=== PATIENT | male | born 1965 | race Caucasian/White ===

== ENCOUNTER 2020-11-21 07:03 | Emergency (ER) | payer BC, OTHER ==
[~2020-11-21] VITALS: Ht 175.2 cm; Wt 84.8 kg
[2020-11-21 07:10] VITALS: BP 154/95
--- NOTE | 2020-11-21 07:34 | Diagnostic Imaging Report ---
INDICATION: Left foot injury AP, oblique and lateral views of the left foot are obtained. There is an oblique lucency to the base of 4th metatarsal indicating nondisplaced intra-articular fracture. There is mild irregularity at the 1st and 2nd tarsometatarsal joints with spurring indicating probable chronic nature. These could be due to post traumatic osteoarthritis. No other fracture is seen. IMPRESSION: Nondisplaced intra-articular fracture base of 4th metatarsal. Dictated by: Dictated on workstation # [id number]
[2020-11-21] MEDS ORDERED: ACHD5005 PO (07:55)
--- NOTE | 2020-11-21 07:56 | ED Lower Extremity ---
General Chief Complaint: Lower Extremity Stated Complaint: L FOOT PAIN Nursing Triage Note: Pt reports being on roof this morning when pt began sliding. Pt was forced to jump from roof landing on feet. Pt c/o L foot pain. Source: patient Exam Limitations: no limitations History of Present Illness Date Seen by Provider: Nov 21, 2020 Time Seen by Provider: 07:13 Initial Comments This 55-year-old gentleman presents to the emergency room with complaints of left foot pain and swelling after sliding off his roof and landing on his feet. He was working on the roof when he began to slide. He could not stop and so therefore controlled his fall the best he could. He did land on his feet. He h as pain in the dorsal midfoot with some swelling or disfigurement of the area. He is not weightbearing. No other injury was reported. The roof edge is about 12 feet off the ground. Allergies and Home Medications Allergies Coded Allergies: No Known Drug Allergies (Unverified Allergy, Mild, 05/24/09) Home Medications Hydrocodone/Acetaminophen 1 Each Tablet, 1 TAB PO Q4H PRN for PAIN-MODERATE (5- 7) Prescribed by: EAMON HSU on 11/21/20 3544 Patient Home Medication List Home Medication List Reviewed: Yes Review of Systems Constitutional: no symptoms reported EENTM: no symptoms reported Respiratory: no symptoms reported Cardiovascular: no symptoms reported Gastrointestinal: no symptoms reported Genitourinary: no symptoms reported Musculoskeletal: see HPI Skin: no symptoms reported Psychiatric/Neurological: No Symptoms Reported Past Kaicbmg-Whvdel-Ircvbo Hx Patient Social History Tobacco Use?: Yes Tobacco type used: Cigarettes Smoking Status: Current Everyday Smoker Smokeless Tobacco Frequency: Current Everyday User Use of E-Cig and/or Vaping dev: No Substance use?: No Alcohol Use?: Yes Alcohol Frequency: Rarely Pt feels they are or have been: No Past Medical History Surgeries: Yes Orthopedic (Cervical spine halo) Respiratory: No Cardiac: No Neurological: No Reproductive Disorders: No Genitourinary: No Gastrointestinal: No Musculoskeletal: Yes Fractures (Numerous) Endocrine: No HEENT: No Cancer: No Psychosocial: No Physical Exam Vital Signs Vital Signs - First Documented 11/21/20 07:10 Temp 35.7 Pulse 80 Resp 15 B/P (MAP) 154/95 (114) Pulse Ox 97 O2 Delivery Room Air Capillary Refill : Less Than 3 Seconds Height, Weight, BMI Height: '" Weight: lbs. oz. kg; 27.00 BMI Method: General Appearance: WD/WN, no apparent distress HEENT: normal ENT inspection Respiratory: no respiratory distress Legs: left leg non-tender, left leg normal inspection, left leg normal range of motion, left leg no evidence of injury Ankles: left ankle non-tender, left ankle normal inspection, left ankle normal range of motion, left ankle no evidence of injury Feet: left foot other (Pain, tenderness, and swelling over the dorsal aspect of the left midfoot. Normal pedal pulse. Normal sensation and capillary refill. 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, no motor/sensory deficits, alert, normal mood/affect, oriented x 3 Skin: normal color, warm/dry Progress/Results/Core Measures Results/Orders My Orders Orders - EAMON HERNANDEZ MD Foot, Left, 3 Views (11/21/20 07:16) Crutches (11/21/20 07:46) Steplite (11/21/20 07:46) Hydrocodone/Apap 5/325 Tablet (Lortab 5 (11/21/20 08:00) Hydrocodone/Apap 5/325 Tablet (Lortab 5 (11/21/20 07:59) Medications Given in ED Current Medications Medications Dose Ordered Sig/Ifeoma Route Start Time Stop Time Status Last Admin Dose Admin Acetaminophen/ Hydrocodone Bitart 1 ea ONCE ONCE PO 11/21/20 08:00 11/21/20 08:01 DC 11/21/20 08:00 1 EA Vital Signs/I&O 11/21/20 07:10 Temp 35.7 Pulse 80 Resp 15 B/P (MAP) 154/95 (114) Pulse Ox 97 O2 Delivery Room Air Blood Pressure Mean: 114 Progress Progress Note : Progress Note Fractures of the second and fourth metatarsals noted. Patient was placed in a boot and provided crutches. Hydrocodone was given for pain. Prompt follow-up with an orthopedist or game master was recommended. Diagnostic Imaging Diagonstic Imaging: Xray Plain Films/CT/US/NM/MRI: other (Left foot) Comments NAME: JERMAINE MARKS MED REC#: [id number] PT STATUS: REG ER : 1965 PHYSICIAN: EAMON HERNANDEZ MD ADMIT DATE: 11/21/20/ER Signed Date of Exam:11/21/20 FOOT, LEFT, 3 VIEWS INDICATION: Left foot injury AP, oblique and lateral views of the left foot are obtained. There is an oblique lucency to the base of 4th metatarsal indicating nondisplaced intra-articular fracture. There is mild irregularity at the 1st and 2nd tarsometatarsal joints with spurring indicating probable chronic nature. These could be due to post traumatic osteoarthritis. No other fracture is seen. IMPRESSION: Nondisplaced intra-articular fracture base of 4th metatarsal. Dictated by: Dictated on workstation # [id number] Dict: 11/21/20729 Trans: 11/21/20736 CV [id number] Interpreted by: ROLAN LIN MD Electronically signed by: ROLAN LIN MD 11/21/2037 Departure Impression Primary Impression: Fracture of fourth metatarsal bone of left foot Qualified Codes: S92.345A - Nondisplaced fracture of fourth metatarsal bone, left foot, initial encounter for closed fracture Additional Impressions: Fracture of second metatarsal bone of left foot Qualified Codes: S92.325A - Nondisplaced fracture of second metatarsal bone, left foot, initial encounter for closed fracture Fall from roof as cause of accidental injury Disposition: 01 HOME, SELF-CARE Condition: Improved Departure-Patient Inst. Decision time for Depature: 07:53 Referrals: HAFSA MCKEON DPM, TERRY D MD SELF, MAXWELL MD (PCP/Family) Primary Care Physician VIRAL BROWNING MD Patient Instructions: Foot Fracture ED, How to Use Crutches Add. Discharge Instructions: Keeping the boot on is much as possible. Do not weight-bear. Use crutches to ambulate. Do not use your left foot for a clutch or any other activity. Elevate and apply ice in 20-minute intervals to improve pain and swelling. Follow-up with an orthopedist as soon as possible. A list of providers can be found below. Call with questions or concerns. Return to the ER if you have worsening symptoms. All discharge instructions reviewed with patient and/or family. Voiced unders tanding. Scripts Hydrocodone/Acetaminophen (Hydrocodone-Acetamin 5-325 mg) 1 Each Tablet 1 TAB PO Q4H PRN for PAIN-MODERATE (5-7), #20 TAB Prov: EAMON HERNANDEZ MD 11/21/20 EAMON HERNANDEZ MD Nov 21, 2020 07:56
[2020-11-21] MEDS ORDERED: HYDROcodone/APAP 5 MG/325 MG (LORTAB) TAB ONE (07:59)
[2020-11-21] MEDS ORDERED: HYDROcodone/APAP 5 MG/325 MG (LORTAB) TAB PO ONE (08:00)
== END 2020-11-21 08:04 | disposition home or self-care (01) ==
LOC: EDUNIT# 07:03 → ER 07:05
DX: S92.345A Nondisplaced fracture of fourth metatarsal bone, left foot, initial encounter for closed fracture (principal); S92.325A Nondisplaced fracture of second metatarsal bone, left foot, initial encounter for closed fracture; F17.210 Nicotine dependence, cigarettes, uncomplicated; W13.2XXA Fall from, out of or through roof, initial encounter
CPT/HCPCS: 73630

== ENCOUNTER 2021-07-20 08:16 | Emergency (ER) | payer OTHER ==
[~2021-07-20] VITALS: Ht 177 cm; Wt 79.8 kg
[~2021-07-20 08:16] MED LIST: ACHD5005 PO
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
[2021-07-20 09:21] LABS: BILIRUBIN,URINE NEGATIVE (NEGATIVE); CLARITY,URINE CLEAR; COLOR,URINE YELLOW; GLUCOSE, URINE (UA) NEGATIVE (NEGATIVE); KETONES,URINE NEGATIVE (NEGATIVE); LEUKOCYTE ESTERASE ,URINE NEGATIVE (NEGATIVE); NITRITE,URINE NEGATIVE (NEGATIVE); PROTEIN,URINE NEGATIVE (NEGATIVE)
[2021-07-20 09:41] LABS: BACTERIA,URINE NEGATIVE /HPF
[2021-07-20] MEDS ORDERED: CYCL10TA25 PO (09:59)
[2021-07-20 10:09] VITALS: BP 155/89
== END 2021-07-20 10:09 | disposition home or self-care (01) ==
LOC: EDUNIT# 08:16 → ER 08:17
DX: S06.0X0A Concussion without loss of consciousness, initial encounter (principal); S70.02XA Contusion of left hip, initial encounter; S70.12XA Contusion of left thigh, initial encounter; S60.222A Contusion of left hand, initial encounter; S60.221A Contusion of right hand, initial encounter; S20.222A Contusion of left back wall of thorax, initial encounter; F17.210 Nicotine dependence, cigarettes, uncomplicated; V89.2XXA Person injured in unspecified motor-vehicle accident, traffic, initial encounter
CPT/HCPCS: 70450; 71045; 72125; 72131; 73130; 73523; 81000